=== PATIENT | female | born 1970 | race Hispanic/Latino ===

== ENCOUNTER 2018-01-05 06:55 | Inpatient (IN) | payer OTHER ==
[2018-01-03 11:57] VITALS: BP 154/90
[2018-01-03 12:15] LABS: BASOPHILS % (AUTO) 0.6 % (0.0-5.0); EOSINOPHILS % (AUTO) 0.4 % (0.0-8.0); HEMATOCRIT 33.9 % (36-48); LYMPHOCYTES % (AUTO) 21.3 % (21.0-51.0); MEAN CORPUSCULAR VOLUME 75.8 fL (79-99); MONOCYTES % (AUTO) 4.4 % (3.0-13.0); NEUTROPHILS % (AUTO) 73.3 % (40.0-77.0); PLATELET COUNT (AUTO) 377 K/uL (130-400); RED BLOOD CELL COUNT(AUTO) 4.47 MIL/uL (4.00-5.50); RED CELL DISTRIBUTION WIDTH 16.5 % (11.0-15.5); WHITE BLOOD COUNT (AUTO) 9.7 K/uL (4.8-10.8)
[2018-01-05] VITALS (26 sets, daily range): BP systolic 95–148; BP diastolic 52–95
[~2018-01-05] VITALS: Ht 154.9 cm; Wt 73.3 kg
[~2018-01-05 06:55] MED LIST: LISI10TA7 PO; PANT40TA PO
[2018-01-05] MEDS ORDERED: LACTATED RINGERS 1000ML 1,000 ML IV ONE (07:47)
[2018-01-05] MEDS: CEFAZOLIN SODIUM 1 GM VIAL ONE ×2 (08:07→16:50)
[2018-01-05] MEDS ORDERED: DEXAMETHASONE SOD PHOSPHATE 10MG/ML 1ML VIAL ONE (16:43)
[2018-01-05] MEDS ORDERED: LIDOCAINE PF 2% 5ML ABBOJECT ONE (16:43)
[2018-01-05] MEDS ORDERED: SUCCINYLCHOLINE 200MG/10ML SYR ONE (16:43)
[2018-01-05] MEDS ORDERED: GLYCOPYRROLATE 0.2 MG/ML 5 ML VIAL ONE (16:43)
[2018-01-05] MEDS ORDERED: ONDANSETRON HCL 4 MG/2 ML VIAL ONE (16:43)
[2018-01-05] MEDS ORDERED: FENTANYL CITRATE PF 50 MCG/1 ML 2ML VIAL ONE (16:44)
[2018-01-05] MEDS ORDERED: PROPOFOL 10 MG/ML 20ML VIAL IV ONE (16:44)
[2018-01-05] MEDS ORDERED: MIDAZOLAM HCL 1 MG/ML 2ML VIAL ONE (16:44)
[2018-01-05] MEDS ORDERED: LIDOCAINE HCL/EPINEPHRINE 50 ML VIAL IJ ONE (17:24)
[2018-01-05] MEDS ORDERED: CALDOLOR 800MG+NS 250ML 250 ML IV ONE (19:29)
[2018-01-05] MEDS ORDERED: BISACODYL 10 MG SUPP.RECT RC PRN (19:30)
[2018-01-05] MEDS ORDERED: MEPERIDINE-PF 50 MG/ML SYG SQ PRN (19:30)
[2018-01-05] MEDS ORDERED: PROMETHAZINE HCL 25 MG/ML 1ML AMPULE IM PRN (21:15)
[2018-01-05] MEDS ORDERED: CEFAZOLIN 2GM / 50 ML 50 ML IV SCH (22:00)
[2018-01-05] MEDS: CEFAZOLIN SODIUM 1 GM VIAL IVP SCH (22:05)
[2018-01-05] MEDS: ACETAMINOPHEN-CODEINE 300/30MG TAB PO PRN (22:21)
[2018-01-06] VITALS (7 sets, daily range): BP systolic 127–151; BP diastolic 65–91
[2018-01-06] MEDS: DEXTROSE 5 %-0.45 % NACL 1,000 ML IV PRN ×2 (00:11→08:48)
[2018-01-06] MEDS: CALDOLOR 800MG+NS 250ML 250 ML IVPB SCH ×2 (03:30→10:39)
[2018-01-06] MEDS: CEFAZOLIN SODIUM 1 GM VIAL IVP SCH (05:59)
[2018-01-06 06:22] LABS: MEAN CORPUSCULAR HEMOGLOBIN 25.2 pg (27.0-33.0); MEAN CORPUSCULAR HGB CONC 33.1 g/dL (32.0-36.0); MEAN CORPUSCULAR VOLUME 76.2 fL (79-99); PLATELET COUNT (AUTO) 343 K/uL (130-400); RED CELL DISTRIBUTION WIDTH 16.4 % (11.0-15.5); WHITE BLOOD COUNT (AUTO) 15.9 K/uL (4.8-10.8)
[2018-01-06] MEDS ORDERED: BENZOCAINE/LANOLIN/ALOE VERA 60 ML AEROSOL TP PRN (06:30)
[2018-01-06] MEDS: DOCUSATE SODIUM 100 MG CAP PO PRN ×2 (08:40→20:46)
[2018-01-06] MEDS: IBUPROFEN 800 MG TAB PO SCH ×2 (11:50→19:27)
[2018-01-06] MEDS: ACETAMINOPHEN-CODEINE 300/30MG TAB PO PRN (16:05)
[2018-01-06] MEDS ORDERED: IBUPROFEN 800 MG TAB PO SCH (19:30)
[2018-01-06] MEDS: SIMETHICONE 80 MG TAB.CHEW PO PRN (21:51)
[2018-01-07 03:01] VITALS: BP 137/72
[2018-01-07] MEDS: IBUPROFEN 800 MG TAB PO SCH ×2 (03:02→11:18)
[2018-01-07 07:48] VITALS: BP 145/79
[2018-01-07] MEDS: SIMETHICONE 80 MG TAB.CHEW PO PRN (08:50)
[2018-01-07] MEDS: DOCUSATE SODIUM 100 MG CAP PO PRN (08:50)
[2018-01-07 11:44] VITALS: BP 141/81
[2018-01-07] MEDS ORDERED: DOCU240C25 PO (11:51)
[2018-01-07] MEDS ORDERED: MO8B PO (11:52)
[2018-01-07] MEDS ORDERED: TYL3 PO (11:53)
== END 2018-01-07 12:40 | disposition home or self-care (01) | DRG 743 ==
LOC: DAH 06:55 → WSH 06:56
PROC: 0UT9FZZ Resection of Uterus, Via Natural or Artificial Opening With Percutaneous Endoscopic Assistance (ICD-10-PCS; principal; 2018-01-05 08:00)
PROC: 0DQR0ZZ Repair Anal Sphincter, Open Approach (ICD-10-PCS; 2018-01-05 08:00)
DX: N92.0 Excessive and frequent menstruation with regular cycle (principal); R15.9 Full incontinence of feces; D25.1 Intramural leiomyoma of uterus; Z28.21 Immunization not carried out because of patient refusal
CPT/HCPCS: 36415; 84703; 85025; 85027; 88307; A4218; J0330; J0690; J1100; J1741; J2001; J2175; J2250; J2405; J2550; J2704; J3010; J3490; J7030; J7120